=== PATIENT | male | born 1975 | race Hispanic/Latino ===

== ENCOUNTER 2017-04-22 22:30 | Emergency (ER) | payer SELFPAY ==
--- NOTE | 2017-04-22 23:40 | Emergency Department Report ---
ED General Adult HPI - General Chief complaint: Altered Mental Status Stated complaint: POSSIBLE OD Time Seen by Provider: 04/22/17 23:03 Source: patient, EMS (ems notes not available at time of chart dictation) Mode of arrival: Stretcher Limitations: No Limitations - History of Present Illness Initial comments: This is a 42-year-old male who was previously unknown to this provided with a history of methamphetamine use, and occasional methamphetamine injection. He was apparently brought to the hospital by EMS after being found unresponsive in the bathroom, and this resolved with Narcan. The patient has no complaints at this time. He has no headache, neck pain, chest pain, abdominal pain or shortness of breath, he is not homicidal or suicidal. He admits to consuming recreational methamphetamine. The patient does not want to stay in the ER for medical evaluation at this time. The patient is alert and oriented 3, walks with a steady gait, exhibits decision-making capacity, is free from distracting injury and endorses decision-making capacity. The patient was specifically able to tell me in his own words the risks of leaving without a complete medical evaluation, including , disability, paralysis, permanent loss of quality of life. Patient did asked to eat and he would be fed. Patient was counseled to discontinue methamphetamine consumption, he will be discharged with a prescription for Narcan, and he is encouraged to return to the ER right away if and when he changes his mind. This entire conversation is witnessed by nurse KRISTINA GOVEA -: This evening Consistency: now resolved Improves with: medication Worsens with: none Associated Symptoms: denies: confusion, chest pain, cough, diaphoresis, fever/ chills, headaches, loss of appetite, malaise, nausea/vomiting, rash, seizure, shortness of breath, syncope, weakness - Related Data Previous Rx's Medication Instructions Recorded Last Taken Type Naloxone HCl [Narcan] 4 mg NS Q1HR PRN #10 spray 04/22/17 Unknown Rx Allergies Allergy/AdvReac Type Severity Reaction Status Date / Time No Known Allergies Allergy Unverified 04/22/17 22:51 ED Review of Systems ROS: Stated complaint: POSSIBLE OD Other details as noted in HPI ED Past Medical Hx - Past Medical History Previous Medical History?: No - Surgical History Past Surgical History?: No - Social History Smoking Status: Current Every Day Smoker Substance Use Type: Methamphetamines - Medications Home Medications: Home Medications Medication Instructions Recorded Confirmed Last Taken Type Naloxone HCl [Narcan] 4 mg NS Q1HR PRN #10 spray 04/22/17 Unknown Rx ED Physical Exam - General Limitations: No Limitations General appearance: alert, in no apparent distress - Head Head exam: Present: atraumatic, normocephalic - Eye Eye exam: Present: normal appearance, EOMI. Absent: nystagmus - ENT ENT exam: Present: normal exam, normal orophraynx, mucous membranes moist, normal external ear exam - Neck Neck exam: Present: normal inspection, full ROM - Respiratory Respiratory exam: Present: normal lung sounds bilaterally. Absent: respiratory distress - Cardiovascular Cardiovascular Exam: Present: regular rate, normal rhythm, normal heart sounds. Absent: systolic murmur, diastolic murmur, rubs, gallop - GI/Abdominal GI/Abdominal exam: Present: soft, normal bowel sounds. Absent: distended, tenderness, guarding, rebound, rigid, pulsatile mass - Rectal Rectal exam: Present: deferred - Extremities Exam Extremities exam: Present: normal inspection, full ROM - Back Exam Back exam: Present: normal inspection, full ROM. Absent: tenderness, CVA tenderness (R), paraspinal tenderness, vertebral tenderness - Neurological Exam Neurological exam: Present: alert, oriented X3, CN II-XII intact, normal gait, other (Extraocular movements intact. Tongue midline. No facial droop. Facial sensation intact to light touch in the V1, V2, V3 distribution bilaterally. 5 and 5 strength in 4 extremities.. Sensation is intact to light touch in 4 extremities.). Absent: motor sensory deficit - Psychiatric Psychiatric exam: Present: anxious. Absent: homicidal ideation, suicidal ideation - Skin Skin exam: Present: warm, dry, intact, normal color. Absent: rash ED Course Vital Signs 04/22/17 04/22/17 22:46 23:00 Temperature 97 F L Pulse Rate 78 Respiratory 16 20 Rate Blood Pressure 131/80 O2 Sat by Pulse 100 98 Oximetry ED Medical Decision Making - Lab Data Vital Signs 04/22/17 04/22/17 22:46 23:00 Temperature 97 F L Pulse Rate 78 Respiratory 16 20 Rate Blood Pressure 131/80 O2 Sat by Pulse 100 98 Oximetry - EKG Data When compared to previous EKG there are: previous EKG unavailable 04/22/17 23:47 Normal sinus, 73 bpm, normal intervals, normal axis, not morphologically consistent with ST elevation myocardial infarction. - Medical Decision Making Differential diagnosis, including but not limited to: Overdose, polysubstance abuse Assessment and plan: 42-year-old male with resolved overdose, I recommended observation, laboratory studies, cardiac monitoring, patient going to sign out AGAINST MEDICAL ADVICE. The patient is alert and oriented 3, he exhibits decision-making capacity is free from distracting injury. The patient understands he can return to the ER right away if and when he changes his mind. Nursing staff Kristina Govea was a direct witness to this conversation. Recent given Narcan prescription. Critical care attestation.: If time is entered above; I have spent that time in minutes in the direct care of this critically ill patient, excluding procedure time. ED Disposition Clinical Impression: History of methamphetamine use Disposition: [id number] LEFT AGAINST MED ADVICE Is pt being admited?: No Does the pt Need Aspirin: No Condition: Undetermined Instructions: Methamphetamine Abuse (ED) Additional Instructions: As we discussed, you have left the hospital/emergency room AGAINST MEDICAL ADVICE. By leaving, you risked , disability, paralysis, permanent loss of quality of life. The ER is open 24 hours a day, 7 days a week. It never closes. Please return to the emergency room right away if and when you change your mind. If you decide not to return to the emergency room, please follow-up with the listed physician referrals as soon as possible. Avoid consumption of methamphetamine and recreational drugs. These substances are dangerous, and bad for patient's health. Do not drive or operate motor vehicles until cleared by your primary care doctor to do so. Prescriptions: Naloxone HCl [Narcan] 4 mg NS Q1HR PRN #10 spray PRN Reason: Agitation Referrals: FAVIO PACHECO MD [Primary Care Provider] - 3-5 Days DELANEY FLORES MD [Staff Physician] - 3-5 Days [facility] [Provider Group] - 3-5 Days [facility] [Outside] - 3-5 Days
[2017-04-22 23:56] VITALS: BP 127/78
== END 2017-04-23 00:27 | disposition left against medical advice (07) ==
LOC: ED 22:30
DX: F15.10 Other stimulant abuse, uncomplicated (principal); F17.200 Nicotine dependence, unspecified, uncomplicated
CPT/HCPCS: 93005; 93010; 99283